=== PATIENT | male | born 1990 | race Two or more races ===

== ENCOUNTER 2024-11-14 15:15 | Emergency (ER) | payer OTHER ==
[~2024-11-14] VITALS: Ht 180.3 cm; Wt 104.3 kg
[2024-11-14] MEDS ORDERED: WELLBUTRIN XL300 MG PO (15:35)
[2024-11-14] MEDS ORDERED: PROPRANOLOL HCL10 MG PO (15:36)
[2024-11-14] MEDS ORDERED: ADDERALL 20 MG20 MG (15:36)
== END 2024-11-14 20:24 | disposition home or self-care (01) ==
LOC: ER 15:15
DX: M25.571 Pain in right ankle and joints of right foot (principal)

== ENCOUNTER 2024-11-17 14:30 | Outpatient (CLI) | payer OTHER ==
[~2024-11-17 14:30] MED LIST: ADDERALL 20 MG20 MG; PROPRANOLOL HCL10 MG PO; WELLBUTRIN XL300 MG PO
[2024-11-17 15:16] LABS: HEMATOCRIT 46.1 % (39.0-48.0); HEMOGLOBIN 15.7 g/dL (13-16.00); MEAN CELL VOLUME 88.3 fL (80.0-100.00); MEAN CORPUSCULAR HEMOGLOBIN 30.1 pg (27.00-32.0); MEAN CORPUSCULAR HGB CONC 34.1 g/dl (32.0-36.0); PLATELET COUNT 305 K/uL (150-450); RED BLOOD COUNT 5.22 M/uL (4.00-6.00); RED CELL DISTRIBUTION WIDTH 13.1 % (11.5-14.5)
[2024-11-17 15:18] LABS: PH,URINE 5.5 (5.0-8.0); URINE APPEARANCE Clear; URINE BILIRRUBIN Negative (NEGATIVE); URINE BLOOD Negative; URINE COLOR Yellow; URINE GLUCOSE Negative (NEGATIVE); URINE KETONE Trace (NEGATIVE); URINE LEUKOCYTE Negative; URINE NITRATE Negative; URINE PROTEIN Negative (NEGATIVE)
[2024-11-17 15:21] LABS: URINE BACTERIA 31.8 uL (0.0-1933); URINE EPITHELIAL CELLS 2.3 uL (0.0-38.8)
[2024-11-17 15:40] LABS: URINE RBC 1.6 uL (0.0-20.8)
[2024-11-17 15:43] LABS: PARTIAL THROMBOPLASTIN TIME 30.9 SECONDS (22.0-34.0); PROTHROMBIN TIME 10.9 SECONDS (9.0-11.5)
[2024-11-17 15:49] LABS: COL EPI 146 SECONDS (82-175)
[2024-11-17 16:08] LABS: ALBUMIN 4.3 gm/dL (3.4-5.0); BILIRUBIN TOTAL 0.56 mg/dL (0.3-1.2); CALCIUM 9.5 mg/dL (8.5-10.1); CREATININE SERUM 1.11 mg/dL (0.70-1.30); GFR 75.38; GLOBULINA 3.9 G/DL (2.4-3.5); POTASSIUM 4.4 mEq/L (3.5-5.1); TOTAL PROTEIN 8.2 gm/dL (6.4-8.2)
== END 2024-11-17 14:38 | disposition home or self-care (01) ==
LOC: RAD 14:30
PROVIDERS: ATTEND Orthopaedic Surgery
DX: D64.9 Anemia, unspecified (principal); E88.89 Other specified metabolic disorders; D68.8 Other specified coagulation defects; N39.0 Urinary tract infection, site not specified; Z22.322 Carrier or suspected carrier of Methicillin resistant Staphylococcus aureus; Z76.89 Persons encountering health services in other specified circumstances